=== PATIENT | male | born 1980 | race Caucasian/White ===

== ENCOUNTER 2018-09-11 19:20 | Emergency (ER) | payer BC, OTHER ==
[2018-09-11] MEDS ORDERED: GI Cocktail 45 ML BOTTLE ONE (19:44)
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
--- NOTE | 2018-09-11 20:10 | CR ---
[id number] RAD/RAD Chest PA And Lateral EXAM: RAD Chest PA And Lateral INDICATION: CHEST PAIN COMPARISON: November 2012. DISCUSSION: Cardiomediastinal silhouette is normal in size and contour. No infiltrate, effusion, pneumothorax, or edema. IMPRESSION: Negative examination of the chest. Bennie Monroe MD 09/11/182008 Thank you for allowing us to participate in the care of your patient.
[2018-09-11 20:13] LABS: ANION GAP 13.6 mmol/L (5-15); CHLORIDE,CL 103 mmol/L (98-115); SODIUM,NA 140 mmol/L (136-145)
[2018-09-11] MEDS ORDERED: Ketorolac 30 MG/ML SDV IVPUSH ONE (20:50)
== END 2018-09-11 21:35 | disposition home or self-care (01) ==
LOC: KA.ED 19:20
DX: R07.81 Pleurodynia (principal)
CPT/HCPCS: 71046; 80053; 83690; 84484; 85025; 86140; 93005; 96374; 99284; A9270; J1885; 99283